=== PATIENT | female | born 1965 ===

== ENCOUNTER 2017-02-21 12:23 | Emergency (ER) | payer SELFPAY ==
[~2017-02-21] VITALS: Ht 165.1 cm; Wt 63.6 kg
[~2017-02-21 12:23] MED LIST: HYDR-3090 PO; ONDA8TAB10 PO; OXYC1TAB24 PO; PSEU240T6 PO
[2017-02-21 12:27] VITALS: BP 131/52; RESP 18; O2SAT 98
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
[2017-02-21] MEDS ORDERED: [UNRECOGNIZED DRUG - REMARK] TOP (12:44)
[2017-02-21] MEDS ORDERED: [UNRECOGNIZED DRUG - CODE] BOTH_EYES (12:44)
[2017-02-21] MEDS ORDERED: LORA10CA PO (13:03)
[2017-02-21] MEDS ORDERED: NAPH15DR63 OP (13:03)
== END 2017-02-21 13:05 | disposition home or self-care (01) ==
LOC: SED 12:23
DX: H10.13 Acute atopic conjunctivitis, bilateral (principal); Z59.0 Homelessness; Z88.5 Allergy status to narcotic agent; Z88.8 Allergy status to other drugs, medicaments and biological substances